=== PATIENT | female | born 2000 | race Caucasian/White ===

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

== ENCOUNTER 2021-04-11 07:06 | Emergency (ER) | payer OTHER ==
[~2021-04-11] VITALS: Ht 167.6 cm; Wt 43.1 kg
== END 2021-04-11 13:08 | disposition home or self-care (01) ==
LOC: EMR PED 07:06
DX: R10.9 Unspecified abdominal pain (principal); Z03.818 Encounter for observation for suspected exposure to other biological agents ruled out

== ENCOUNTER 2023-07-04 10:40 | Emergency (ER) | payer OTHER ==
[2023-07-04 15:10] LABS: HEMOGLOBIN 13.1 g/dL (12.0-15.00); MEAN CELL VOLUME 86.5 fL (80.00-100.00); MEAN CORPUSCULAR HGB CONC 33.5 g/dl (32.0-36.0); PLATELET COUNT 278 K/uL (150-450); RED BLOOD COUNT 4.51 M/uL (4.00-6.00); RED CELL DISTRIBUTION WIDTH 13.4 % (11.5-14.5)
== END 2023-07-04 15:59 | disposition home or self-care (01) ==
LOC: ER 10:42
PROVIDERS: General Practice
DX: R53.1 Weakness (principal); J02.8 Acute pharyngitis due to other specified organisms

== ENCOUNTER 2024-05-13 20:56 | Emergency (ER) | payer OTHER ==
[~2024-05-13] VITALS: Ht 162.6 cm; Wt 40.8 kg
[2024-05-13] MEDS ORDERED: ONDANSETRON HCL 2 MG/ML VIAL IV ONE (21:45)
[2024-05-13] MEDS ORDERED: HYOSCYAMINE SULFATE 0.125 MG TAB.SUBL SL ONE (21:45)
[2024-05-13] MEDS ORDERED: 0.9 % SODIUM CHLORIDE 1,000 ML IV ONE (21:45)
[2024-05-13 21:50] LABS: HEMATOCRIT 40.3 % (36.0-45.00); HEMOGLOBIN 13.8 g/dL (12.0-15.00); MEAN CELL VOLUME 85.6 fL (80.00-100.00); MEAN CORPUSCULAR HEMOGLOBIN 29.3 pg (27.00-32.0); MEAN CORPUSCULAR HGB CONC 34.3 g/dl (32.0-36.0); RED CELL DISTRIBUTION WIDTH 13.3 % (11.5-14.5)
[2024-05-13 21:54] LABS: PLATELET COUNT 106 K/uL (150-450)
[2024-05-13 22:06] LABS: ALKALINE PHOSPHATASE 43 U/L (50-136); ALT/SGPT 39 U/L (12-78); AMYLASE 93 U/L (25-115); ANION GAP 10 (10.0-20.0); AST/SGOT 59 U/L (15-37); BILIRUBIN TOTAL 0.52 mg/dL (0.3-1.2); BLOOD UREA NITROGEN 5 mg/dL (7-18); BUN CREA RATIO 7 (7.0-25.0); CALCIUM 8.9 mg/dL (8.5-10.1); CARBON DIOXIDE 28 mEq/L (21-32); CHLORIDE 103 mmol/L (98-107); GFR 103.69; GLOBULINA 3.6 G/DL (2.4-3.5); GLUCOSE FASTING 96 mg/dL (65-100); OSMOLALITY SERUM 273 MOSM/KG (275-295); POTASSIUM 3.41 mEq/L (3.5-5.1); SODIUM 138 mmol/L (136-145); TOTAL PROTEIN 7.6 gm/dL (6.4-8.2)
[2024-05-13 22:09] LABS: HCG QUANTITATIVE < 1 mUI/mL (1-3); LIPASE 127 U/L (13-75)
== END 2024-05-13 22:50 | disposition home or self-care (01) ==
LOC: ER 20:58
PROVIDERS: General Practice
DX: A90 Dengue fever [classical dengue] (principal)
CPT/HCPCS: 36415; 96365; 99282; J2405; J7030

== ENCOUNTER 2024-05-14 20:09 | Inpatient (IN) | payer OTHER ==
[~2024-05-14] VITALS: Ht 165.1 cm; Wt 40.8 kg
--- NOTE | 2024-05-14 22:09 | NUR ---
SE RECIBE PTE ALERTA Y ORIENTADA X3 LA MISMA REFIERE PRESENTAR PLAQUETAS EN 84 YA QUE PTE TIENE DENGUE. SE REALIZAN VITALES Y SE DOCUMENTAN.
[2024-05-14] MEDS ORDERED: ACETAMINOPHEN 500 MG GEL..CAP PO ONE (22:30)
[2024-05-14] MEDS ORDERED: 0.9 % SODIUM CHLORIDE 1,000 ML IV SCH (22:30)
--- NOTE | 2024-05-14 22:41 | NUR ---
SE ORIENTA PTE SOBRE TX A SEGUIR, LA MISMA REFIERE ENTENDER. SE MELANIA MUESTRA DE LAB, SE CANALIZA Y SE COLOCA IV FLUIDS
[2024-05-14 23:50] LABS: HEMATOCRIT 36.2 % (36.0-45.00); HEMOGLOBIN 12.1 g/dL (12.0-15.00); MEAN CELL VOLUME 86.5 fL (80.00-100.00); MEAN CORPUSCULAR HEMOGLOBIN 28.9 pg (27.00-32.0); MEAN CORPUSCULAR HGB CONC 33.4 g/dl (32.0-36.0); RED BLOOD COUNT 4.18 M/uL (4.00-6.00); RED CELL DISTRIBUTION WIDTH 12.7 % (11.5-14.5)
[2024-05-15 00:03] LABS: INR 1.04; PROTHROMBIN TIME 11.3 SECONDS (9.0-11.5)
[2024-05-15 00:05] LABS: ALBUMIN 3.5 gm/dL (3.4-5.0); ALKALINE PHOSPHATASE 37 U/L (50-136); ALT/SGPT 51 U/L (12-78); ANION GAP 7 (10.0-20.0); AST/SGOT 57 U/L (15-37); BILIRUBIN TOTAL 0.42 mg/dL (0.3-1.2); CALCIUM 8.2 mg/dL (8.5-10.1); CARBON DIOXIDE 31 mEq/L (21-32); CHLORIDE 105 mmol/L (98-107); CREATININE SERUM 0.58 mg/dL (0.55-1.02); GFR 128.83; GLOBULINA 3.1 G/DL (2.4-3.5); GLUCOSE FASTING 94 mg/dL (65-100); POTASSIUM 3.16 mEq/L (3.5-5.1); SODIUM 140 mmol/L (136-145); TOTAL PROTEIN 6.6 gm/dL (6.4-8.2)
[2024-05-15 00:06] LABS: PLATELET COUNT 73 K/uL (150-450)
[2024-05-15 00:07] LABS: PARTIAL THROMBOPLASTIN TIME 40.7 SECONDS (22.0-34.0)
[2024-05-15 00:08] LABS: BLOOD UREA NITROGEN < 1 mg/dL (7-18); BUN CREA RATIO 2 (7.0-25.0); OSMOLALITY SERUM 275 MOSM/KG (275-295)
[2024-05-15 06:50] LABS: HEMATOCRIT 34.1 % (36.0-45.00); MEAN CORPUSCULAR HEMOGLOBIN 29.9 pg (27.00-32.0); MEAN CORPUSCULAR HGB CONC 35.1 g/dl (32.0-36.0); RED BLOOD COUNT 4.01 M/uL (4.00-6.00)
--- NOTE | 2024-05-15 07:24 | NUR ---
SE RECIBE A PTE EN CAMA DURMIENDO, CANALIZADA EN MANO IZQUIERDA CON ANGIO 19 TIENE 0.9NSS BAJANDO A 200ML/HR. SE LE PASCALE S/V, PENDIENTE RESULTADOS DE LABORATORIOS
[2024-05-15 07:49] LABS: PLATELET COUNT 63 K/uL (150-450)
[2024-05-15] MEDS ORDERED: ACETAMINOPHEN 325 MG TABLET PO PRN (10:15)
[2024-05-15] MEDS ORDERED: ONDANSETRON HCL 4 MG in 0.9 % SODIUM CHLORIDE 50 ML IV PRN (10:15)
[2024-05-15] MEDS ORDERED: 0.9 % SODIUM CHLORIDE 1,000 ML IV SCH (10:15)
[2024-05-15 11:14] VITALS: BP 101/70; O2SAT 100
[2024-05-15 12:02] LABS: PH,URINE 5.5 (5.0-8.0); URINE APPEARANCE Clear; URINE BILIRRUBIN Negative (NEGATIVE); URINE BLOOD Large; URINE COLOR Yellow; URINE GLUCOSE Negative (NEGATIVE); URINE KETONE Trace (NEGATIVE); URINE LEUKOCYTE Negative; URINE NITRATE Negative; URINE PROTEIN Trace (NEGATIVE)
[2024-05-15 12:07] LABS: URINE BACTERIA 277.8 uL (0.0-1933); URINE EPITHELIAL CELLS 6.9 uL (0.0-38.8); URINE RBC 3565.5 uL (0.0-20.8); URINE WBC 16.2 uL (0.0-23.2)
[2024-05-15] MEDS ORDERED: ACETAMINOPHEN 500 MG GEL..CAP PO PRN (15:45)
[2024-05-15 20:59] VITALS: BP 102/60; O2SAT 100
[2024-05-16 01:34] VITALS: BP 95/50; O2SAT 100
[2024-05-16 06:31] LABS: CALCIUM 7.7 mg/dL (8.5-10.1); CREATININE SERUM 0.41 mg/dL (0.55-1.02); GFR 192.24; POTASSIUM 3.35 mEq/L (3.5-5.1)
[2024-05-16 06:39] LABS: HEMATOCRIT 36.1 % (36.0-45.00); HEMOGLOBIN 12.3 g/dL (12.0-15.00); MEAN CELL VOLUME 86.2 fL (80.00-100.00); MEAN CORPUSCULAR HEMOGLOBIN 29.3 pg (27.00-32.0); RED BLOOD COUNT 4.19 M/uL (4.00-6.00)
[2024-05-16 07:15] LABS: PLATELET COUNT 62 K/uL (150-450)
[2024-05-16 08:35] VITALS: BP 97/58; O2SAT 100
[2024-05-16] MEDS ORDERED: PANTOPRAZOLE SODIUM 40 MG/VIAL VIAL IV NR (12:00)
[2024-05-16 15:30] LABS: MAGNESIUM 1.9 mg/dL (1.8-2.4); PHOSPHOROUS 2.9 mg/dL (2.5-4.9)
[2024-05-16 16:54] VITALS: BP 100/65; O2SAT 98
[2024-05-17 02:40] VITALS: BP 112/68; O2SAT 96
[2024-05-17 06:34] LABS: HEMATOCRIT 35.6 % (36.0-45.00); HEMOGLOBIN 11.9 g/dL (12.0-15.00); MEAN CELL VOLUME 86.9 fL (80.00-100.00); MEAN CORPUSCULAR HEMOGLOBIN 28.9 pg (27.00-32.0); MEAN CORPUSCULAR HGB CONC 33.3 g/dl (32.0-36.0)
[2024-05-17 07:22] LABS: PLATELET COUNT 80 K/uL (150-450)
[2024-05-17 08:37] VITALS: BP 108/53; O2SAT 99
[2024-05-17] MEDS ORDERED: PANTOPRAZOLE SODIUM 40 MG/VIAL VIAL IV SCH (09:00)
== END 2024-05-17 09:19 | disposition home or self-care (01) | DRG 866 ==
LOC: ER 20:11 → MEDI 05-15 10:18 → SEC-K 05-15 10:18 → MEDI 05-15 15:35
PROVIDERS: General Practice; ADMIT Student in an Organized Health Care Education/Training Program; ATTEND Student in an Organized Health Care Education/Training Program
DX: A90 Dengue fever [classical dengue] (principal); D69.6 Thrombocytopenia, unspecified

== ENCOUNTER 2025-03-02 19:02 | Emergency (ER) | payer OTHER ==
[~2025-03-02] VITALS: Ht 165.1 cm; Wt 44.5 kg
[2025-03-02] MEDS ORDERED: ALBUTEROL SULFATE 3 ML/2.5 MG AMPUL.NEB IH SCH (20:45)
[2025-03-02] MEDS ORDERED: GUAIFENESIN 200 MG/10 ML BLIST.PACK PO ONE ×2 (21:00→21:10)
[2025-03-02] MEDS ORDERED: IPRATROPIUM BROMIDE 0.5 MG/2.5 ML AMPUL.NEB IH SCH (21:00)
[2025-03-02] MEDS ORDERED: METHYLPREDNISOLONE SOD SUCC 125 MG VIAL IV ONE (21:00)
[2025-03-02] MEDS ORDERED: METHYLPREDNISOLONE SOD SUCC 125 MG VIAL ONE (21:09)
[2025-03-02] MEDS ORDERED: IPRATROPIUM BROMIDE 0.5 MG/2.5 ML AMPUL.NEB IH ONE (21:52)
[2025-03-02] MEDS ORDERED: ALBUTEROL SULFATE 3 ML/2.5 MG AMPUL.NEB IH ONE (21:52)
[2025-03-02 21:56] LABS: BASO % 0.8 % (0.1-1.2); EOS # 0.08 (0.04-0.54); EOS % 1.5 % (0.7-7.0); LYMPH # 2.48 (1.18-3.74); LYMPH % 47.3 % (19.3-53.1); MEAN PLATELET VOLUME 9.10 fl (9.4-12.4); MONO # 0.52 (0.24-0.82); MONO % 9.9 % (4.7-12.5); NEUT # 2.12 (1.56-6.13); NEUT % 40.5 % (34.0-71.1); RED CELL DISTRIBUTION WIDTH 12.0 % (11.6-14.4)
[2025-03-02 22:20] LABS: BUN CREA RATIO 20.0 (7.0-25.0); CREATININE SERUM 0.5 mg/dL (0.55-1.02); GFR 152.89; GLUCOSE FASTING 94.0 mg/dL (65-100); OSMOLALITY SERUM 278.0 MOSM/KG (275-295)
[2025-03-02 22:36] LABS: COVID-19 AG NEGATIVE (NEGATIVE)
[2025-03-02] MEDS ORDERED: DOLOGEN 325-11 EACH PO (23:49)
[2025-03-02] MEDS ORDERED: TUSSIN DM LIQU118 ML PO (23:49)
[2025-03-02] MEDS ORDERED: AZITHROMYCIN250 MG PO (23:49)
== END 2025-03-03 00:06 | disposition home or self-care (01) ==
LOC: ER 19:02
DX: J06.9 Acute upper respiratory infection, unspecified (principal); Z20.822 Contact with and (suspected) exposure to COVID-19